=== PATIENT | female | born 1970 | race Two or more races ===

== ENCOUNTER 2022-06-19 06:00 | Day surgery (SDC) | payer OTHER ==
[~2022-06-19] VITALS: Ht 162.6 cm; Wt 79.4 kg
[~2022-06-19 06:00] MED LIST: IMITREX100 MG PO
== END 2022-06-19 14:10 | disposition home or self-care (01) ==
LOC: CIR.AMB 06:00
PROVIDERS: ATTEND Obstetrics & Gynecology
DX: N93.8 Other specified abnormal uterine and vaginal bleeding (principal); Z88.0 Allergy status to penicillin; N85.00 Endometrial hyperplasia, unspecified; Z20.822 Contact with and (suspected) exposure to COVID-19

== ENCOUNTER 2024-02-11 07:04 | Emergency (ER) | payer OTHER ==
[~2024-02-11] VITALS: Ht 162.6 cm; Wt 70.3 kg
[2024-02-11] MEDS ORDERED: KETOROLAC TROMETHAMINE 15 MG VIAL IM STA (08:29)
[2024-02-11 10:50] LABS: HEMATOCRIT 44.6 % (36.0-45.00); HEMOGLOBIN 15.1 g/dL (12.0-15.00); MEAN CELL VOLUME 91.2 fL (80.00-100.00); PLATELET COUNT 207 K/uL (150-450); RED BLOOD COUNT 4.89 M/uL (4.00-6.00)
[2024-02-11 11:12] LABS: ALBUMIN 3.9 gm/dL (3.4-5.0); BILIRUBIN TOTAL 0.75 mg/dL (0.3-1.2); CALCIUM 9.6 mg/dL (8.5-10.1); CREATININE SERUM 1.03 mg/dL (0.55-1.02); GFR 55.63; GLOBULINA 3.9 G/DL (2.4-3.5); POTASSIUM 4.62 mEq/L (3.5-5.1); TOTAL PROTEIN 7.8 gm/dL (6.4-8.2)
[2024-02-11 14:41] VITALS: BP 124/75; O2SAT 100
== END 2024-02-11 14:42 | disposition home or self-care (01) ==
LOC: ER 07:06
PROVIDERS: General Practice
DX: R53.81 Other malaise (principal); R10.2 Pelvic and perineal pain; Z88.0 Allergy status to penicillin
CPT/HCPCS: 36415; 74177; Q9965